=== PATIENT | male | born 1960 ===

== ENCOUNTER 2018-04-03 06:44 | Day surgery (SDC) | payer MEDICARE, OTHER ==
[~2018-04-03] VITALS: Ht 157.5 cm; Wt 51.8 kg
[~2018-04-03 06:44] MED LIST: SODIUM CHLORIDE 0.9% 1,000 ML IV ONE
[2018-04-03] MEDS ORDERED: SODIUM CHLORIDE 0.9% 1,000 ML IV ONE (06:45)
[2018-04-03] MEDS ORDERED: MIDAZOLAM HCL 2 MG/2 ML VIAL ONE (08:05)
[2018-04-03] MEDS ORDERED: FentaNYL CITRATE-PF 100 MCG/2 ML VIAL ONE (08:05)
[2018-04-03] MEDS ORDERED: MethylPREDNISolone SOD SUCC 125 MG/2 ML VIAL IVP ONE (09:00)
[2018-04-03] MEDS ORDERED: MethylPREDNISolone SOD SUCC 125 MG/2 ML VIAL ONE (09:19)
[2018-04-03] MEDS ORDERED: BENZOCAINE 20% 50 MCG/SPRAY 57 GM ONE (16:44)
[2018-04-03] MEDS ORDERED: LIDOCAINE HCL 2% 30 ML JELLY ONE (16:44)
[2018-04-03] MEDS ORDERED: ALBUTEROL SULFATE 2.5 MG/0.5 ML NEB SOLUTION NEB ONE (16:44)
[2018-04-03] MEDS ORDERED: LIDOCAINE HCL 4% 50 ML SOLUTION ONE (16:44)
[2018-04-03] MEDS ORDERED: OXYGEN THERAPY IH SCH (20:00)
== END 2018-04-03 10:35 | disposition home or self-care (01) ==
LOC: SURGERY 06:44
PROVIDERS: ATTEND Internal Medicine Critical Care Medicine
DX: J38.4 Edema of larynx (principal); B37.0 Candidal stomatitis; I70.0 Atherosclerosis of aorta
CPT/HCPCS: 31623; 31624; 71045; 87015; 87070; 87205; 87206; 87220; 88108; 88312; J2250; J2930; J3010; J7030